=== PATIENT | male | born 1940 | race Caucasian/White ===

== ENCOUNTER 2018-10-26 14:13 | Emergency (ER) | payer MEDICARE ==
[~2018-10-26] VITALS: Ht 170.2 cm; Wt 69.8 kg
[2018-10-26] MEDS ORDERED: FLAGYL500 MG PO (16:12)
[2018-10-26] MEDS ORDERED: ZESTRIL5 MG PO (16:31)
--- NOTE | 2018-10-27 14:00 | EKG ---
[facility] [address] [facility] [place], [place] [address] Signed Sinus rhythm with 2nd degree AV block with 2:1 AV conduction Possible Left atrial enlargement Septal infarct , age undetermined Abnormal ECG No previous ECGs available Confirmed by ADRIAN ROGERS MD ([id number]) on 10/27/2018 1:59:51 PM Electronically Signed By: ADRIAN ROGERS MD 10/27/18 1400 PATIENT NAME: ANDREAMIKE Electrocardiogram DATE OF : 40 PHYSICIAN: ADRIAN ROGERS MD REPORT #: [id number] REPORT IS CONFIDENTIAL AND NOT TO BE RELEASED WITHOUT AUTHORIZATION
== END 2018-10-26 17:15 | disposition home or self-care (01) ==
LOC: ED 14:13
DX: I10 Essential (primary) hypertension (principal); R00.1 Bradycardia, unspecified; I44.1 Atrioventricular block, second degree; Z20.2 Contact with and (suspected) exposure to infections with a predominantly sexual mode of transmission; Z88.0 Allergy status to penicillin
CPT/HCPCS: 80053; 84484; 85025; 93005; 93010; 99282-25

== ENCOUNTER 2018-11-30 14:36 | Emergency (ER) | payer MEDICARE ==
[~2018-11-30] VITALS: Ht 170.2 cm; Wt 69.8 kg
--- OUTSIDE RECORDS SUMMARY | ~2018-11-30 | XMS | Clinical Summary ---
Demographics + + + | Address | [address] | | | [place] [address] | + + + | Home Phone | | + + + | Preferred Language | Unknown | + + + | Marital Status | Single | + + + | Yazdanism Affiliation | Unknown | + + + | Race | Unknown | + + + | Ethnic Group | Unknown | + + + Author + + + | Author | [facility] | + + + | Organization | [facility] | + + + | Address | Unknown | + + + | Phone | Unavailable | + + + Support + + +---------+ + | Name | Relationship | Address | Phone | + + +---------+ + | Rosette Sarah | ECON | Unknown | | + + +---------+ + Care Team Providers + +------+ + | Care Culinary Director Name | Role | Phone | + +------+ + | Keila Wong PA-C | PP | | + +------+ + Allergies Not on File Current Medications Not on file Active Problems Not on file Encounters +--------+ + + + + | Date | Type | Specialty | Care Team | Description | +--------+ + + + + | 11/18/ | Documentati | | Satish Merino, | | | 2018 | on Only | | MD | | +--------+ + + + + from Last 3 Months Social History + +-------+ +--------+------+ | Tobacco Use | Types | Packs/Day | Years | Date | | | | | Used | | + +-------+ +--------+------+ | Never Assessed | | | | | + +-------+ +--------+------+ + + + | Sex Assigned at | Date Recorded | | | | + + + | Not on file | | + + + Plan of Treatment +--------+ + + + + | Date | Type | Specialty | Care Team | Description | +--------+ + + + + | 01/14/ | Initial | | Lizeth Drake DO | | | 2018 | consult | | [address] | | | | | | [place] | | | | | | [address] | | | | | | | | +--------+ + + + + + + + + + | Health Maintenance | Due Date | Last Done | Comments | + + + + + | Vaccine: | | | | | Dtap/Tdap/Td (1 - | 0 | | | | Tdap) | | | | + + + + + | Vaccine: Zoster (1 | | | | | of 2) | 1 | | | + + + + + | Vaccine: | | | | | Pneumococcal 65+ | 6 | | | | Low/Medium Risk (1 | | | | | of 2 - PCV13) | | | | + + + + + | Vaccine: Influenza | | | | | (Season Ended) | 9 | | | + + + + + Results Not on filefrom Last 3 Months Insurance + +--------+ +------+-------+ + | Payer | Benefi | Subscriber | Type | Phone | Address | | | t Plan | ID | | | | | | / | | | | | | | Group | | | | | + +--------+ +------+-------+ + | MEDICARE | MEDICA | [id number] | | | [address] | | | RE | | | | [place] [phone] | | | IP-OP | | | | | + +--------+ +------+-------+ + + +--------+ +--------+ + + | Guarantor Name | Accoun | Relation to | Date | Phone | Billing Address | | | t Type | Patient | of | | | | | | | | | | + +--------+ +--------+ + + | MILTON JASSO | Person | Self | [birth year] | Home: | [address] | | | al/John | | 1941 | [phone] | [place] [address] | | | jabari | | | [phone] | | + +--------+ +--------+ + +"
--- OUTSIDE RECORDS SUMMARY | ~2018-11-30 | XMS | Encounter Summary ---
Demographics + + + | Address | [address] | | | [place] [address] | + + + | Home Phone | | + + + | Preferred Language | Unknown | + + + | Marital Status | Single | + + + | Presybeterian Affiliation | Unknown | + + + | Race | Unknown | + + + | Ethnic Group | Unknown | + + + Author + + + | Author | [facility] | + + + | Organization | [facility] | + + + | Address | Unknown | + + + | Phone | Unavailable | + + + Support + + +---------+ + | Name | Relationship | Address | Phone | + + +---------+ + | Rosette Sarah | ECON | Unknown | | + + +---------+ + Care Team Providers + +------+ + | Care Wall Mirror Department Supervisor Name | Role | Phone | + +------+ + | Keila Wong PA-C | PCP | | + +------+ + Encounter Details +--------+ + + + + | Date | Type | Department | Care Team | Description | +--------+ + + + + | 11/18/ | Documentati | [facility] | Satish Merino, | | | 2018 | on Only | Jed [facility] | [address] | | | | | [address] | [address] [place], | | | | | [place], [place] | [place] [address] | | | | | [address] | [phone] | | | | | [phone] | | | +--------+ + + + + Social History + +-------+ +--------+------+ | Tobacco [...] on file | | + + + as of this encounter Plan of Treatment +--------+ + + + + | Date | Type | Specialty | Care Team | Description | +--------+ + + + + | 01/14/ | Initial | Cardiology | Lizeth Drake DO | | | 2019 | consult | | [address] | | | | | | [place] | | | | | | [address] | | | | | | | | +--------+ + + + + as of this encounter Visit Diagnoses Not on filein this encounter"
--- OUTSIDE RECORDS SUMMARY | ~2018-11-30 | XMS | Clinical Summary ---
Demographics + + + | Address | [address] | | | [place] [address] | + + + | Home Phone | | + + + | Preferred Language | Unknown | + + + | Marital Status | Single | + + + | Episcopal Affiliation | Unknown | + + + | Race | Unknown | + + + | Ethnic Group | Unknown | + + + Author + + + | Author | [facility] | + + + | Organization | [facility] | + + + | Address | Unknown | + + + | Phone | Unavailable | + + + Support + + +---------+ + | Name | Relationship | Address | Phone | + + +---------+ + | Rosette Sarah | ECON | Unknown | | + + +---------+ + Care Team Providers + +------+ + | Care Extension Work Director Name | Role | Phone | [...] [place] | | | | | | [id number] | | | | | | | [...] +------+-------+ + | MEDICARE | MEDICA | [id number] | | | [address] | | | RE | | | | [place] [phone] | | | IP-OP | | | [...] | 1941 | [phone] | [place] [address] | | | [place] | | | [phone] | | + +--------+ +--------+ + +"
--- OUTSIDE RECORDS SUMMARY | ~2018-11-30 | XMS | Encounter Summary ---
Demographics + + + | Address | [address] | | | [place] [address] | + + + | Home Phone | | + + + | Preferred Language | Unknown | + + + | Marital Status | Single | + + + | Jainism Affiliation | Unknown | + + + | Race | Unknown | + + + | Ethnic Group | Unknown | + + + Author + + + | Author | [facility] | + + + | Organization | [facility] | + + + | Address | Unknown | + + + | Phone | Unavailable | + + + Support + + +---------+ + | Name | Relationship | Address | Phone | + + +---------+ + | Rosette Sarah | ECON | Unknown | | + + +---------+ + Care Team Providers + +------+ + | Care Cashier Wrapper Name | Role | Phone | + [...] | | [address] | [address] [place], | | | | | [place], [place] | [place] [address] | | | | | [address] | [phone] | | | | | [phone] | | | +--------+ + + + [...] | | | | | | [place] | | | | | | [address] | | | | | | | | +--------+ + + + + as of this encounter Visit Diagnoses Not on filein this encounter"
[~2018-11-30 14:36] MED LIST: FLAGYL500 MG PO; ZESTRIL5 MG PO
--- OUTSIDE RECORDS SUMMARY | 2018-11-30 14:40 | XMS ---
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 [facility] has no Care Guidelines for this patient. Care History Medical/Surgical 10/27/2018 [facility] - [facility] RECEIVED ED CASE MANAGEMENT CONSULT- HELP PATIENT WITH SETTING UP WITH A SHELLFISH DREDGE OPERATOR. - PATIENT DOES NOT HAVE INSURANCE- MEDICARE ELIGIBLE. - [facility] CONTACTED PATIENT- PATIENT STATED HE DOES NOT KNOW IF HE EVER APPLIED FOR MEDICARE AND DOES NOT HAVE A PCP. HE DIDN\T\#39;[id number] PLAN ON FURTHER FOLLOW UP WITH A PROVIDER UNTIL HE WAS SEEN IN THE ED. - [facility] PROVIDED PATIENT WITH MEDICARE CONTACT NUMBER AND THE WEBSITE INFORMATION AND SUGGESTED PATIENT GO TO THE [employer] SECURITY OFFICE FOR FURTHER INFORMATION. PATIENT STATED HE BELIEVES HE HAS SOME MONEY COMING OUT OF HIS SOCIAL SECURITY FOR SOMETHING NOT SURE FOR WHAT. - PATIENT STATED HE HAS A MEDICARE ID CARD BUT IT . - PATIENT STATED HE WOULD CONTACT [facility] LATER ON DURING THE DAY WHEN HE IS MORE AWAKE. HE WOULD LIKE TO CONTACT SOMEONE HE KNOWS AT [facility] TO SEE WHAT HE CAN DO. CHW STATED IT IS VERY CRITICAL TO HAVE CLOSE FOLLOW UP WITH A PCP AND TO HAVE A SHELLFISH DREDGE OPERATOR REFERRAL. PATIENT STATED HE WAS AWARE AND WILL BE IN CONTACT WITH [facility]. E.D. VISIT COUNT (12 MO.) 2 [facility] TOTAL 2 NOTE: Visits indicate total known visits. ED/UCC VISIT TRACKING (12 MO.) 11/30/2018 14:37 [facility] TYPE: Emergency COMPLAINT: - HIGH BP 10/26/2018 14:14 [facility] TYPE: Emergency COMPLAINT: - HTN DIAGNOSES: - Essential (primary) hypertension - Bradycardia, unspecified - Contact with and (suspected) exposure to infections with a predominantly sexual mode of transmission - Atrioventricular block, second degree - Allergy status to penicillin INPATIENT VISIT TRACKING (12 MO.) No inpatient visits to display in this time frame [email or web address]
[2018-11-30] MEDS ORDERED: LISINOPRIL10 MG PO (14:51)
[2018-11-30] MEDS ORDERED: PRINIVIL10 MG PO (19:38)
[2018-11-30] MEDS ORDERED: HYDRALAZINE HCL10 MG PO (19:38)
--- NOTE | 2018-12-01 16:02 | EKG ---
[facility] [address] [facility] [place], [place] [address] Signed Marked sinus bradycardia with 1st degree AV block Septal infarct (cited on or before 26-OCT-2018) Abnormal ECG When compared with ECG of 26-OCT-2018 14:21, Sinus rhythm is no longer with 2nd degree AV block Confirmed by WILD PAULINO MD ([id number]) on 12/01/2018 4:01:46 PM Electronically Signed By: WILD PAULINO MD 12/01/18 1602 PATIENT NAME: MIKE MENDEZ Electrocardiogram DATE OF : 40 PHYSICIAN: WILD PAULINO MD REPORT #: [id number] REPORT IS CONFIDENTIAL AND NOT TO BE RELEASED WITHOUT AUTHORIZATION
== END 2018-11-30 19:57 | disposition home or self-care (01) ==
LOC: ED 14:36
DX: I45.9 Conduction disorder, unspecified (principal); I10 Essential (primary) hypertension; R00.1 Bradycardia, unspecified; Z87.891 Personal history of nicotine dependence; Z88.0 Allergy status to penicillin
CPT/HCPCS: 80053; 85025; 93005; 93010; 99283-25